=== PATIENT | female | born 1990 ===

== ENCOUNTER 2018-12-03 21:33 | Emergency (ER) | payer OTHER ==
[~2018-12-03] VITALS: Ht 167.6 cm; Wt 90.7 kg
[2018-12-03] MEDS ORDERED: PRENATABS RX T1 EACH (22:08)
== END 2018-12-04 06:40 | disposition home or self-care (01) ==
LOC: ER 21:33
DX: O26.891 Other specified pregnancy related conditions, first trimester (principal); R00.2 Palpitations; Z34.01 Encounter for supervision of normal first pregnancy, first trimester